=== PATIENT | male | born 1985 | race Caucasian/White ===

== ENCOUNTER 2019-11-23 01:24 | Inpatient (IN) | payer SELFPAY ==
[2019-11-23] VITALS (28 sets, daily range): BP systolic 93–133; BP diastolic 40–69
[~2019-11-23] VITALS: Ht 182.9 cm; Wt 90.7 kg
[2019-11-23] MEDS ORDERED: SUCCINYLCHOLINE CHLORIDE 200MG/10ML IV ONE ×2 (01:29→01:45)
[2019-11-23] MEDS ORDERED: ONDANSETRON HCL 4MG/2ML INJ IV STA (01:38)
[2019-11-23] MEDS ORDERED: SODIUM CHLORIDE 0.9% 1,000 ML IV ONE ×2 (01:38→04:05)
[2019-11-23] MEDS ORDERED: PROPOFOL 10MG/ML 100ML 100 ML IV ONE ×3 (01:45→11:37)
[2019-11-23 02:09] LABS: PROTHROMBIN TIME 10.5 sec (9.6-11.0)
[2019-11-23 02:22] LABS: CHLORIDE 103 mEq/L (98-107)
[2019-11-23 02:27] LABS: ETHANOL BLOOD 126 mg/dL
[2019-11-23 03:36] LABS: HEMATOCRIT. 47.2 % (42.0-52.0); HEMOGLOBIN. 15.9 g/dL (14.0-18.0); MEAN CORPUSCULAR HEMOGLOBIN 29.9 pg (28.0-32.0); MEAN CORPUSCULAR VOLUME 88.5 fL (80.0-94.0); MEAN PLATELET VOLUME 7.8 fl (7.4-10.4); PLATELET 250 x1000/uL (130-400); RED BLOOD CELL COUNT 5.33 mill/uL (4.7-6.1); RED CELL DISTRIBUTION WIDTH 13.5 % (11.6-14.6)
[2019-11-23 03:50] LABS: *AMPHETAMINES SCREEN URINE NEGATIVE (NEGATIVE); *BARBITURATES SCREEN URINE NEGATIVE (NEGATIVE); *BENZODIAZEPINES SCREEN URINE NEGATIVE (NEGATIVE)
[2019-11-23 03:51] LABS: *COCAINE SCREEN URINE PRESUMTIVE POSITIVE (NEGATIVE); CANNABINOID URINE SCREEN NEGATIVE (NEGATIVE); METHADONE URINE SCREEN NEGATIVE (NEGATIVE); OPIATES URINE SCREEN NEGATIVE (NEGATIVE); PHENCYCLIDINE URINE SCREEN NEGATIVE (NEGATIVE)
[2019-11-23 03:56] LABS: CLARITY URINE CLEAR (CLEAR); COLOR URINE YELLOW (YELLOW); KETONES URINE NEGATIVE (NEGATIVE); LEUKOCYTE ESTERASE URINE NEGATIVE (NEGATIVE); NITRITE URINE NEGATIVE (NEGATIVE); OCCULT BLOOD URINE TRACE (NEGATIVE); PH URINE 6.5 (4.5-8.0); PROTEIN URINE 2+ (NEGATIVE); SPECIFIC GRAVITY URINE 1.008 (1.005-1.030); UROBILINOGEN URINE 0.2 E.U./dL (0.2-1.0)
[2019-11-23 04:09] LABS: PLATELET ESTIMATE NORMAL
[2019-11-23] MEDS ORDERED: CEFTRIAXONE 1 G PREMIX 50 ML IV SCH ×2 (04:15→10:30)
[2019-11-23 04:25] LABS: BG BASE EXCESS -8.5 mmol/L (-2.0-2.0); BG CARBOXYHEMOGLOBIN 0.2 % (0.5-1.5); BG DEOXYHEMOGLOBIN 2.1 % (0.0-5.0); BG FRACTION INSPIRED OXYGEN 4016; BG HCO3 ACT 19.7 mmol/L (22.0-26.0); BG METHEMOGLOBIN 0.2 % (0.0-1.5); BG OXYGEN SATURATION 97.9 % (92.0-98.5); BG OXYHEMOGLOBIN 97.5 % (94.0-97.0); BG PCO2 51.2 mmHg (35.0-45.0); BG PH 7.204 (7.350-7.450); BG PO2 126.3 mmHg (75.0-100.0); BG SAMPLE SITE RIGHT RADIAL; BG TIDAL VOLUME(mL) 500 mL; BG VENT MODE VENT - A/C
[2019-11-23] MEDS ORDERED: AZITHROMYCIN 500 MG in DEXT 5% WATER 250 ML IV SCH (05:00)
[2019-11-23] MEDS ORDERED: NOREPINEPHRINE 4MG/250ML PMX 250 ML IV ONE (06:25)
[2019-11-23] MEDS: SODIUM CHLORIDE 0.9% 1,000 ML IV SCH ×2 (06:32→17:21)
[2019-11-23 06:54] LABS: BASOPHILS % 0.2 % (0.0-2.0); HEMATOCRIT. 39.2 % (42.0-52.0); HEMOGLOBIN. 13.7 g/dL (14.0-18.0); LYMPHOCYTES % 13.9 % (20.0-50.0); MEAN CORPUSCULAR HEMOGLOBIN 30.5 pg (28.0-32.0); MEAN CORPUSCULAR VOLUME 87.1 fL (80.0-94.0); MEAN PLATELET VOLUME 7.6 fl (7.4-10.4); MONOCYTES % 5.4 % (2.0-8.0); NEUTROPHILS % 80.5 % (40.0-76.0); PLATELET 189 x1000/uL (130-400); RED CELL DISTRIBUTION WIDTH 13.5 % (11.6-14.6)
[2019-11-23 06:59] LABS: CHLORIDE 112 mEq/L (98-107)
[2019-11-23 07:53] LABS: BG BASE EXCESS -7.4 mmol/L (-2.0-2.0); BG DEOXYHEMOGLOBIN 0.9 % (0.0-5.0); BG FRACTION INSPIRED OXYGEN 100; BG HCO3 ACT 18.3 mmol/L (22.0-26.0); BG METHEMOGLOBIN 0.3 % (0.0-1.5); BG OXYGEN SATURATION 99.1 % (92.0-98.5); BG OXYHEMOGLOBIN 98.8 % (94.0-97.0); BG PCO2 37.9 mmHg (35.0-45.0); BG PH 7.302 (7.350-7.450); BG PO2 304.7 mmHg (75.0-100.0); BG SAMPLE SITE RIGHT BRACHIAL; BG TIDAL VOLUME(mL) 500 mL; BG TOTAL HEMOGLOBIN 13.1 g/dL (12.0-18.0); BG VENT MODE VENT - A/C; BG VENT RATE 16 set
[2019-11-23] MEDS ORDERED: METRONIDAZOLE 500 MG PREMIX 100 ML IV NR (09:00)
[2019-11-23] MEDS ORDERED: ONDANSETRON HCL 4MG/2ML INJ IV PRN (10:30)
[2019-11-23] MEDS ORDERED: MIDAZOLAM HCL 50 MG in DEXTROSE 5% WATER 40 ML IV PRN ×2 (10:45→22:00)
[2019-11-23] MEDS ORDERED: FENTANYL CITRATE/PF 500 MCG in SODIUM CHLORIDE 0.9% 40 ML IV PRN (12:15)
[2019-11-23] MEDS: FENTANYL CITRATE/PF 500 MCG in SODIUM CHLORIDE 0.9% 40 ML IV PRN (13:00)
[2019-11-23] MEDS: FAMOTIDINE 20MG/2ML VIAL IV SCH (13:19)
[2019-11-23] MEDS: MIDAZOLAM HCL 50 MG in DEXTROSE 5% WATER 40 ML IV PRN (19:00)
[2019-11-23] MEDS: ACETAMINOPHEN 325MG TABLET PO PRN (21:59)
[2019-11-23] MEDS ORDERED: METRONIDAZOLE 500 MG PREMIX 100 ML IV SCH (22:00)
[2019-11-23] MEDS: METRONIDAZOLE 500 MG PREMIX 100 ML IV SCH (22:33)
[2019-11-24] VITALS (59 sets, daily range): BP systolic 94–155; BP diastolic 43–104
[2019-11-24] MEDS: FENTANYL CITRATE/PF 500 MCG in SODIUM CHLORIDE 0.9% 40 ML IV PRN ×2 (00:58→10:47)
[2019-11-24] MEDS: SODIUM CHLORIDE 0.9% 1,000 ML IV SCH ×3 (02:34→21:30)
[2019-11-24] MEDS: CEFTRIAXONE 1 G PREMIX 50 ML IV SCH (03:08)
[2019-11-24] MEDS: METRONIDAZOLE 500 MG PREMIX 100 ML IV SCH ×3 (06:00→21:30)
[2019-11-24 06:29] LABS: HEMATOCRIT. 42.4 % (42.0-52.0); HEMOGLOBIN. 14.5 g/dL (14.0-18.0); MEAN CORPUSCULAR HEMOGLOBIN 30.3 pg (28.0-32.0); MEAN CORPUSCULAR VOLUME 88.6 fL (80.0-94.0); MEAN PLATELET VOLUME 9.3 fl (7.4-10.4); PLATELET 133 x1000/uL (130-400); RED BLOOD CELL COUNT 4.78 mill/uL (4.7-6.1); RED CELL DISTRIBUTION WIDTH 13.7 % (11.6-14.6)
[2019-11-24 06:45] LABS: CHLORIDE 111 mEq/L (98-107)
[2019-11-24 08:03] LABS: PLATELET ESTIMATE NORMAL
[2019-11-24] MEDS: FAMOTIDINE 20MG/2ML VIAL IV SCH (08:25)
[2019-11-24] MEDS: ACETAMINOPHEN 325MG TABLET PO PRN ×2 (08:25→15:13)
[2019-11-24 09:21] LABS: BG CARBOXYHEMOGLOBIN 0.8 % (0.5-1.5); BG DEOXYHEMOGLOBIN 3.8 % (0.0-5.0); BG FRACTION INSPIRED OXYGEN 60; BG HCO3 ACT 25.8 mmol/L (22.0-26.0); BG METHEMOGLOBIN 0.1 % (0.0-1.5); BG OXYGEN SATURATION 96.2 % (92.0-98.5); BG OXYHEMOGLOBIN 95.3 % (94.0-97.0); BG PCO2 46.7 mmHg (35.0-45.0); BG PH 7.361 (7.350-7.450); BG PO2 80.8 mmHg (75.0-100.0); BG SAMPLE SITE RIGHT RADIAL; BG TIDAL VOLUME(mL) 500 mL; BG TOTAL HEMOGLOBIN 14.1 g/dL (12.0-18.0); BG VENT MODE VENT - A/C; BG VENT RATE 16 set
[2019-11-24] MEDS: MIDAZOLAM HCL 50 MG in DEXTROSE 5% WATER 40 ML IV PRN (11:10)
[2019-11-24] MEDS ORDERED: IPRATROPIUM/ALBUTEROL 0.5-3(2.5)MG/3ML NEB HHN PRN (13:30)
[2019-11-24] MEDS ORDERED: LORAZEPAM 2MG/ML CPJ IV PRN (13:30)
[2019-11-24] MEDS: METHYLPREDNISOLONE SOD SUCC 40 MG/ML VIAL IV SCH ×2 (14:35→21:30)
[2019-11-24] MEDS: MORPHINE SULFATE 2 MG/ML CPJ (NOT FOR IM USE) IV PRN (14:35)
[2019-11-24] MEDS: LORAZEPAM 2MG/ML CPJ IV PRN (14:36)
[2019-11-24] MEDS: ACETYLCYSTEINE 100MG/ML 10% VIAL 4ML INH SCH (16:32)
[2019-11-24] MEDS: IPRATROPIUM/ALBUTEROL 0.5-3(2.5)MG/3ML NEB HHN SCH (20:49)
[2019-11-25] VITALS (48 sets, daily range): BP systolic 106–163; BP diastolic 65–99
[2019-11-25] MEDS: ACETYLCYSTEINE 100MG/ML 10% VIAL 4ML INH SCH ×3 (01:06→14:29)
[2019-11-25] MEDS: IPRATROPIUM/ALBUTEROL 0.5-3(2.5)MG/3ML NEB HHN SCH ×4 (01:06→21:45)
[2019-11-25] MEDS: CEFTRIAXONE 1 G PREMIX 50 ML IV SCH (03:01)
[2019-11-25] MEDS: METRONIDAZOLE 500 MG PREMIX 100 ML IV SCH ×3 (05:19→21:23)
[2019-11-25] MEDS: METHYLPREDNISOLONE SOD SUCC 40 MG/ML VIAL IV SCH ×2 (05:19→16:27)
[2019-11-25 06:26] LABS: HEMATOCRIT. 38.4 % (42.0-52.0); HEMOGLOBIN. 13.3 g/dL (14.0-18.0); MEAN CORPUSCULAR HEMOGLOBIN 30.5 pg (28.0-32.0); MEAN CORPUSCULAR VOLUME 88.1 fL (80.0-94.0); MEAN PLATELET VOLUME 7.9 fl (7.4-10.4); PLATELET 164 x1000/uL (130-400); RED BLOOD CELL COUNT 4.35 mill/uL (4.7-6.1)
[2019-11-25 06:36] LABS: CHLORIDE 109 mEq/L (98-107)
[2019-11-25] MEDS: FAMOTIDINE 20MG/2ML VIAL IV SCH (08:10)
[2019-11-25 08:34] LABS: PLATELET ESTIMATE NORMAL
[2019-11-25 09:57] LABS: BG BASE EXCESS -3.5 mmol/L (-2.0-2.0); BG CARBOXYHEMOGLOBIN 0.5 % (0.5-1.5); BG DEOXYHEMOGLOBIN 2.8 % (0.0-5.0); BG HCO3 ACT 23.1 mmol/L (22.0-26.0); BG METHEMOGLOBIN 0.1 % (0.0-1.5); BG OXYGEN SATURATION 97.2 % (92.0-98.5); BG OXYHEMOGLOBIN 96.6 % (94.0-97.0); BG PCO2 47.4 mmHg (35.0-45.0); BG PH 7.305 (7.350-7.450); BG PO2 95.1 mmHg (75.0-100.0); BG SAMPLE SITE RIGHT RADIAL; BG TIDAL VOLUME(mL) 500 mL; BG VENT MODE VENT - SIMV; BG VENT RATE 6 set
[2019-11-25 13:00] LABS: BG BASE EXCESS 1.4 mmol/L (-2.0-2.0); BG CARBOXYHEMOGLOBIN 0.3 % (0.5-1.5); BG CPAP (cmH2O) 0 cm(H2O); BG DEOXYHEMOGLOBIN 1.4 % (0.0-5.0); BG HCO3 ACT 27.6 mmol/L (22.0-26.0); BG METHEMOGLOBIN 0.3 % (0.0-1.5); BG OXYGEN SATURATION 98.6 % (92.0-98.5); BG PCO2 50.1 mmHg (35.0-45.0); BG PH 7.359 (7.350-7.450); BG PO2 155.5 mmHg (75.0-100.0); BG SAMPLE SITE RIGHT RADIAL; BG TOTAL HEMOGLOBIN 13.7 g/dL (12.0-18.0); BG VENT MODE VENT - CPAP
[2019-11-25] MEDS: SODIUM CHLORIDE 0.9% 1,000 ML IV SCH (14:54)
[2019-11-26] VITALS (70 sets, daily range): BP systolic 107–207; BP diastolic 43–146
[2019-11-26] MEDS: LORAZEPAM 2MG/ML CPJ IV PRN (00:40)
[2019-11-26] MEDS ORDERED: LORAZEPAM 2MG/ML CPJ IV SCH (01:00)
[2019-11-26] MEDS: IPRATROPIUM/ALBUTEROL 0.5-3(2.5)MG/3ML NEB HHN SCH ×4 (01:40→20:20)
[2019-11-26] MEDS: ACETYLCYSTEINE 100MG/ML 10% VIAL 4ML INH SCH (01:40)
[2019-11-26] MEDS: CEFTRIAXONE 1 G PREMIX 50 ML IV SCH (03:59)
[2019-11-26] MEDS: MORPHINE SULFATE 2 MG/ML CPJ (NOT FOR IM USE) IV PRN (03:59)
[2019-11-26] MEDS: METHYLPREDNISOLONE SOD SUCC 40 MG/ML VIAL IV SCH (06:20)
[2019-11-26] MEDS: METRONIDAZOLE 500 MG PREMIX 100 ML IV SCH ×3 (06:20→21:33)
[2019-11-26 06:43] LABS: HEMATOCRIT. 40.8 % (42.0-52.0); MEAN CORPUSCULAR HEMOGLOBIN 29.7 pg (28.0-32.0); MEAN CORPUSCULAR VOLUME 86.3 fL (80.0-94.0); MEAN PLATELET VOLUME 7.9 fl (7.4-10.4); PLATELET 226 x1000/uL (130-400); RED BLOOD CELL COUNT 4.73 mill/uL (4.7-6.1); RED CELL DISTRIBUTION WIDTH 13.1 % (11.6-14.6)
[2019-11-26 06:49] LABS: CHLORIDE 106 mEq/L (98-107)
[2019-11-26] MEDS: FAMOTIDINE 20MG/2ML VIAL IV SCH (07:39)
[2019-11-26] MEDS: HALOPERIDOL LACTATE 5MG/ML VIAL IM PRN (09:28)
[2019-11-26] MEDS: FOLIC ACID 1 MG, THIAMINE HCL 100 MG, MVI, ADULT NO.1 10 ML in DEXTROSE 5% WATER 1,000 ML IV SCH ×4 (11:18)
[2019-11-26 16:55] LABS: PLATELET ESTIMATE NORMAL
[2019-11-26] MEDS ORDERED: DILTIAZEM HCL 5MG/ML 5ML VIAL IV PRN (18:30)
[2019-11-26] MEDS: AMLODIPINE 5MG TABLET PO SCH (20:24)
[2019-11-26] MEDS: LACTULOSE 20G/30ML UDC PO SCH (21:33)
[2019-11-26 21:46] LABS: BASOPHILS % 0.6 % (0.0-2.0); HEMATOCRIT. 41.2 % (42.0-52.0); HEMOGLOBIN. 14.3 g/dL (14.0-18.0); LYMPHOCYTES % 10.1 % (20.0-50.0); MEAN CORPUSCULAR VOLUME 86.2 fL (80.0-94.0); MEAN PLATELET VOLUME 7.4 fl (7.4-10.4); MONOCYTES % 3.4 % (2.0-8.0); NEUTROPHILS % 85.9 % (40.0-76.0); PLATELET 196 x1000/uL (130-400); RED BLOOD CELL COUNT 4.78 mill/uL (4.7-6.1); RED CELL DISTRIBUTION WIDTH 13.6 % (11.6-14.6)
[2019-11-26 21:54] LABS: CHLORIDE 105 mEq/L (98-107)
[2019-11-26 22:00] LABS: INR 0.9; PROTHROMBIN TIME 10.1 sec (9.6-11.0)
[2019-11-26 22:03] LABS: CREATINE KINASE 522 IU/L (39-308)
[2019-11-27] VITALS (92 sets, daily range): BP systolic 94–163; BP diastolic 54–107
[2019-11-27] MEDS: HYDRALAZINE 20MG/ML VIAL IV SCH ×5 (00:16→23:43)
[2019-11-27] MEDS: CEFTRIAXONE 1 G PREMIX 50 ML IV SCH (03:36)
[2019-11-27] MEDS: LACTULOSE 20G/30ML UDC PO SCH ×3 (05:42→21:04)
[2019-11-27] MEDS: METRONIDAZOLE 500 MG PREMIX 100 ML IV SCH ×3 (05:44→21:05)
[2019-11-27] MEDS: IPRATROPIUM/ALBUTEROL 0.5-3(2.5)MG/3ML NEB HHN SCH ×4 (08:16→20:17)
[2019-11-27] MEDS: FAMOTIDINE 20MG/2ML VIAL IV SCH (08:21)
[2019-11-27] MEDS: AMLODIPINE 5MG TABLET PO SCH ×2 (08:21→21:04)
[2019-11-27 09:29] LABS: HEMATOCRIT 43.9 % (42.0-52.0); HEMOGLOBIN 15.5 g/dL (14.0-18.0); MEAN CORPUSCULAR HEMOGLOBIN 30.3 pg (28.0-32.0); MEAN CORPUSCULAR VOLUME 85.8 fL (80.0-94.0); PLATELET 202 x1000/uL (130-400); RED BLOOD CELL COUNT 5.11 mill/uL (4.7-6.1); RED CELL DISTRIBUTION WIDTH 13.5 % (11.6-14.6)
[2019-11-27 09:36] LABS: CHLORIDE 105 mEq/L (98-107)
[2019-11-27] MEDS: HALOPERIDOL LACTATE 5MG/ML VIAL IM PRN ×2 (10:57→23:43)
[2019-11-27] MEDS: POTASSIUM CHLORIDE 20MEQ TABLET SR PO SCH ×2 (11:42→18:04)
[2019-11-27] MEDS: FOLIC ACID 1 MG, THIAMINE HCL 100 MG, MVI, ADULT NO.1 10 ML in DEXTROSE 5% WATER 1,000 ML IV SCH ×4 (14:00)
[2019-11-28] VITALS (48 sets, daily range): BP systolic 82–161; BP diastolic 26–89
[2019-11-28] MEDS: IPRATROPIUM/ALBUTEROL 0.5-3(2.5)MG/3ML NEB HHN SCH ×4 (01:20→21:36)
[2019-11-28] MEDS: CEFTRIAXONE 1 G PREMIX 50 ML IV SCH (02:46)
[2019-11-28] MEDS: LACTULOSE 20G/30ML UDC PO SCH (05:13)
[2019-11-28] MEDS: HYDRALAZINE 20MG/ML VIAL IV SCH ×2 (05:14→12:00)
[2019-11-28] MEDS: METRONIDAZOLE 500 MG PREMIX 100 ML IV SCH ×3 (05:14→22:59)
[2019-11-28 05:37] LABS: CHLORIDE 108 mEq/L (98-107)
[2019-11-28 05:40] LABS: BASOPHILS % 0.2 % (0.0-2.0); EOSINOPHILS % 1.5 % (0.0-5.0); HEMATOCRIT. 45.2 % (42.0-52.0); HEMOGLOBIN. 15.6 g/dL (14.0-18.0); LYMPHOCYTES % 22.1 % (20.0-50.0); MEAN PLATELET VOLUME 7.6 fl (7.4-10.4); MONOCYTES % 7.1 % (2.0-8.0); NEUTROPHILS % 69.1 % (40.0-76.0); PLATELET 220 x1000/uL (130-400); RED BLOOD CELL COUNT 5.19 mill/uL (4.7-6.1); RED CELL DISTRIBUTION WIDTH 13.4 % (11.6-14.6)
[2019-11-28] MEDS: POTASSIUM CHLORIDE 20MEQ TABLET SR PO SCH (08:30)
[2019-11-28] MEDS: AMLODIPINE 5MG TABLET PO SCH ×2 (08:30→20:37)
[2019-11-28] MEDS: FAMOTIDINE 20MG/2ML VIAL IV SCH (08:30)
[2019-11-28] MEDS: FOLIC ACID 1 MG, THIAMINE HCL 100 MG, MVI, ADULT NO.1 10 ML in DEXTROSE 5% WATER 1,000 ML IV SCH ×4 (12:40)
[2019-11-29] MEDS: IPRATROPIUM/ALBUTEROL 0.5-3(2.5)MG/3ML NEB HHN SCH ×2 (01:55→08:00)
[2019-11-29 04:00] VITALS: BP 105/62
[2019-11-29] MEDS: HYDRALAZINE 20MG/ML VIAL IV SCH ×3 (05:47→11:42)
[2019-11-29 08:00] VITALS: BP 128/75
[2019-11-29] MEDS: POTASSIUM CHLORIDE 20MEQ TABLET SR PO SCH (09:12)
[2019-11-29] MEDS: FAMOTIDINE 20MG/2ML VIAL IV SCH (09:13)
[2019-11-29] MEDS: AMLODIPINE 5MG TABLET PO SCH (09:13)
[2019-11-29 10:50] VITALS: BP 128/75
[2019-11-29] MEDS: FOLIC ACID 1 MG, THIAMINE HCL 100 MG, MVI, ADULT NO.1 10 ML in DEXTROSE 5% WATER 1,000 ML IV SCH ×4 (11:42)
== END 2019-11-29 12:59 | disposition home or self-care (01) | DRG 720 ==
LOC: ER 01:24 → EDBEDREQSVC 03:44 → CVICU 04:09 → EDBEDREQTM 04:13 → EDBEDREQ 04:13 → ENRESERV 14:44 → 5WST 11-26 00:10 → CVICU 11-26 02:00 → 7WST 11-28 13:45
PROVIDERS: ADMIT Family Medicine; ATTEND Family Medicine
PROC: 0BH17EZ Insertion of Endotracheal Airway into Trachea, Via Natural or Artificial Opening (ICD-10-PCS; principal; 2019-11-23)
PROC: 5A1945Z Respiratory Ventilation, 24-96 Consecutive Hours (ICD-10-PCS; 2019-11-23)
DX: A41.9 Sepsis, unspecified organism (principal); J96.00 Acute respiratory failure, unspecified whether with hypoxia or hypercapnia; J69.0 Pneumonitis due to inhalation of food and vomit; G92 Toxic encephalopathy; J68.0 Bronchitis and pneumonitis due to chemicals, gases, fumes and vapors; I10 Essential (primary) hypertension; F10.129 Alcohol abuse with intoxication, unspecified; E87.6 Hypokalemia; I48.91 Unspecified atrial fibrillation; E87.4 Mixed disorder of acid-base balance; T50.901A Poisoning by unspecified drugs, medicaments and biological substances, accidental (unintentional), initial encounter; F14.10 Cocaine abuse, uncomplicated; Z78.1 Physical restraint status; Y92.89 Other specified places as the place of occurrence of the external cause
CPT/HCPCS: 36415; 36600; 71045; 80048; 80053; 80076; 80305; 80320; 81003; 82140; 82375; 82550; 82805; 82962; 83605; 83735; 83880; 84484; 85025; 85027; 87070; 87804; 92610; 93005; 93306; 96361; 96365; 96366; 96367; 96368; 96375; 99291; J0330; J0360; J0456; J0696; J1630; J2060; J2250; J2270; J2405; J2704; J2920; J3010; J3411; J3490; J7030; J7060; J7070; J7608; G0480